=== PATIENT | female | born 1960 | race African-American/Black ===

== ENCOUNTER 2022-04-17 05:52 | Observation (INO) | payer OTHER ==
[2022-04-17 06:12] VITALS: TEMP 97.8; BMI 33.6
[2022-04-17] MEDS ORDERED: LACTATED RINGERS SOLUTION 1000 ML INFUS.BAG IV ONE (06:22)
[2022-04-17] MEDS ORDERED: ACETAMINOPHEN 1000 MG/100 ML BAG IVPB ONE (06:22)
[2022-04-17] MEDS ORDERED: FAMOTIDINE 20 MG/50 ML IVPB 20 MG/50 ML MG IVPB ONE ×2 (06:22→06:37)
[2022-04-17] MEDS ORDERED: methylPREDNISolone NA SUCC 125 MG/2 ML VIAL IVPB ONE (06:23)
[2022-04-17] MEDS ORDERED: ACETAMINOPHEN INJECTION 100 ML IVPB ONE (06:37)
[2022-04-17] MEDS ORDERED: methylPREDNISolone NA SUCC 125 MG/2 ML VIAL ONE (06:50)
[2022-04-17 06:53] LABS: BASO % 0.5 % (0-2.0); EOS % 1.7 % (0-4.5); HEMATOCRIT 41.9 % (32.4-45.2); HEMOGLOBIN 13.9 GM/dL (10.7-15.3); LYMPH % 20.2 % (8-40); MCH 26.5 pg (25.7-33.7); MCHC 33.1 g/dl (32.0-36.0); MEAN CELL VOLUME 80.1 fl (80-96); MEAN PLT VOLUME 8.3 fl (7.5-11.1); NEUT % 70.6 % (42.8-82.8); PLATELET COUNT 236 10^3/uL (134-434); RBC 5.23 M/mm3 (3.60-5.2); RDW 14.5 % (11.6-15.6); WHITE BLOOD COUNT 7.1 K/mm3 (4.0-10.0)
[2022-04-17 07:04] LABS: BLOOD UREA NITROGEN 17.1 mg/dL (7-18); CALCIUM 8.9 mg/dL (8.5-10.1)
[2022-04-17 07:05] LABS: ALBUMIN 3.6 g/dl (3.4-5.0)
[2022-04-17 07:08] LABS: CREATININE 0.7 mg/dL (0.55-1.3)
[2022-04-17 07:09] LABS: BILIRUBIN,TOTAL 0.5 mg/dL (0.2-1); TOT PROT 7.6 g/dl (6.4-8.2)
[2022-04-17 16:57] LABS: N-TERMINAL BNP 16.4 pg/ml (5-125)
[2022-04-17 19:30] VITALS: BP 151/94; PULSE 83; RESP 16
[2022-04-17] MEDS ORDERED: amLODIPine BESYLATE 10 MG TABLET (FP) PO ONE (19:38)
[2022-04-17] MEDS ORDERED: amLODIPine BESYLATE 10 MG TABLET (FP) ONE (19:49)
== END 2022-04-17 19:59 | disposition home or self-care (01) ==
LOC: JER 05:52 → JERBED 07:20
PROVIDERS: ADMIT Internal Medicine; ATTEND Internal Medicine
PROC: 3E033GC Introduction of Other Therapeutic Substance into Peripheral Vein, Percutaneous Approach (ICD-10-PCS; principal; 2022-04-17)
PROC: 3E033NZ Introduction of Analgesics, Hypnotics, Sedatives into Peripheral Vein, Percutaneous Approach (ICD-10-PCS; 2022-04-17)
PROC: 3E0337Z Introduction of Electrolytic and Water Balance Substance into Peripheral Vein, Percutaneous Approach (ICD-10-PCS; 2022-04-17)
DX: I10 Essential (primary) hypertension (principal); E66.01 Morbid (severe) obesity due to excess calories; Z68.33 Body mass index [BMI] 33.0-33.9, adult; R73.03 Prediabetes; Z88.8 Allergy status to other drugs, medicaments and biological substances; Z88.0 Allergy status to penicillin; Z91.09 Other allergy status, other than to drugs and biological substances
CPT/HCPCS: 0241U-QW; 36415; 71045-TC-FY; 71250-TC; 80053; 80061; 83036; 83880; 84443; 84484; 85025; 93005; 93010; 96365; 96375; 99285-25; G0378